=== PATIENT | male | born 1995 | race Caucasian/White ===

== ENCOUNTER 2024-10-02 21:50 | Inpatient (IN) ==
--- NOTE | 2024-10-02 22:12 | ED Physician Documentation ---
History of Present Illness Stated complaint Stated Complaint: YELLOW EYES Chief complaint Chief Complaint: General History obtained from History obtained from: Patient Additonal information Additional information: Previously healthy 29-year-old gentleman was drinking a fair amount and then went on a decker over the weekend for a few days. Woke up the next day was feeling ill also tried drinking some more but it really did not work. He stopped alcohol for 5 days ago and had a few days of nonbloody vomiting and feeling ill. Now he feels great and says "I could run 5 miles right now," but noticed he was jaundiced. He has no history of liver disease. No abdominal pain. Meds/Allgy Allergies Allergies Allergy/AdvReac Type Severity Reaction Status Date / Time No Known Drug Allergies Allergy Verified 10/02/24 21:54 PFSH Active Problems All Active Problems (Updated 10/02/24 @ 23:34 by Cale Hooker MD) Acute alcoholic hepatitis (Acute) Social History Social History (Updated 10/02/24 @ 22:47 by Chet Nevarez RN) Smoking Status: Former smoker Second hand tobacco smoke exposure: Yes Do you dip or chew tobacco?: Yes Do you vape?: No Patient requests smoking cessation consult: No Initiate information on smoking cessation: No Living arrangement: At home Living Condition: Alone Relationship: Do you feel safe in your home environment?: Yes Suffered physical, verbal, emotional, or financial abuse?: No Exam Constitutional normal general appearance and no apparent distress He is jaundiced but in no distress, by eyeball his bilirubin will be in the teens. Gastrointestinal Enlarged nontender liver Results Vitals Vitals: Vital Signs - 24 hr 10/02/24 21:54 10/02/24 22:47 10/02/24 23:11 Temperature 36.8 C 37.1 C Temperature Source Tympanic Oral Pulse Rate 120 H 110 H 101 H Respiratory Rate 16 22 21 Blood Pressure 170/100 H 152/101 H 156/101 H O2 Saturation 100 100 100 O2 Source Room air Room air Room air Pain Intensity 0 Oxygen O2 Source Room air Labs Labs: Laboratory Tests 10/02/24 22:26 WBC 15.7 H RBC 3.26 L Hgb 12.4 L Hct 35.0 L MCV 107.4 H MCH 38.0 H MCHC 35.4 RDW 16.3 H Plt Count 125 L MPV 13.6 H PT 23.9 H INR 2.3 H Sodium 132 L Potassium 3.7 Chloride 96 L Carbon Dioxide 26 Anion Gap 10.0 BUN 8 Creatinine 0.8 Estimated GFR (MDRD) 114 Glucose 121 H Calcium 9.8 Magnesium 1.7 Total Bilirubin 10.8 H AST 122 H ALT 44 Alkaline Phosphatase 84 Total Protein 8.6 Albumin 3.9 Globulin 4.7 H Albumin/Globulin Ratio 0.8 L Lipase 23 Acetaminophen < 0.1 Ethyl Alcohol < 10.0 PD Medical Decision Making ED course ED course: 29-year-old gentleman presents with likely alcoholic hepatitis and jaundice. His MELD score is 28 points giving him almost a 1 in 3 90-day mortality. His Madrey's discriminant factor is 70.1 leading to a poor prognosis and steroids are begun. Care to overnight emergency physician at 11 PM pending u ltrasonography, with recommendation for likely transfer to facility with hepatology. Discharge Plan Discharge Condition: Serious Clinical Impression: Acute alcoholic hepatitis Print Language: Marshallese Stand Alone Forms: PCP List
[2024-10-02] MEDS: THIAMINE 100 MG/1 ML 2 ML MDV IVP STA (22:33)
[2024-10-02] MEDS: SODIUM CHLORIDE 0.9% 1,000 ML IV STA (22:33)
[2024-10-02 22:38] LABS: INR 2.3 (0.8-1.2); PT - PROTHROMBIN TIME 23.9 secs (9.9-12.6)
[2024-10-02 22:39] LABS: BASOPHILS % (AUTO) 0.6 %; EOSINOPHILS % (AUTO) 0.9 %; HGB - HEMOGLOBIN 12.4 g/dL (14.0-18.0); LYMPHOCYTES % (AUTO) 10.2 %; MEAN CORPUSCULAR HGB CONC 35.4 g/dL (32.0-36.0); MEAN CORPUSCULAR VOLUME 107.4 fL (80.0-94.0); MEAN PLATELET VOLUME 13.6 fL (7.4-11.4); MONOCYTES % (AUTO) 10.9 %; NEUTROPHILS % (AUTO) 76.9 %; PLT - PLATELET COUNT 125 10^3/uL (130-450); RED BLOOD COUNT 3.26 10^6/uL (4.70-6.10); RED CELL DISTRIBUTION WIDTH 16.3 % (12.0-15.0); WHITE BLOOD COUNT 15.7 x10^3/uL (4.8-10.8)
[2024-10-02 22:45] LABS: MAGNESIUM 1.7 mg/dL (1.7-2.3)
[2024-10-02 22:52] LABS: ALBUMIN 3.9 g/dL (3.2-5.5); ALBUMIN/GLOBULIN RATIO 0.8 (1.0-2.2); ALKALINE PHOSPHATASE 84 IU/L (42-121); ALT ALANINE AMINOTRANSFERASE 44 IU/L (10-60); AST ASPARTATE AMINOTRANSFERASE 122 IU/L (10-42); BILIRUBIN,TOTAL 10.8 mg/dL (0.2-1.0); BUN - BLOOD UREA NITROGEN 8 mg/dL (6-20); CALCIUM 9.8 mg/dL (8.5-10.3); CARBON DIOXIDE - CO2 26 mmol/L (21-32); CHLORIDE 96 mmol/L (101-111); CREATININE 0.8 mg/dL (0.6-1.3); ETOH - ETHANOL < 10.0 mg/dL; GFR - MDRD 114 (>89); GLUCOSE 121 mg/dL (74-104); LIPASE 23 U/L (11-82); POTASSIUM 3.7 mmol/L (3.5-4.5); SODIUM 132 mmol/L (135-145); TOTAL PROTEIN 8.6 g/dL (6.4-8.9)
[2024-10-02 22:53] LABS: ABNORMAL LYMPHS % (MANUAL) 0 %
[2024-10-02 22:56] LABS: ACETAMINOPHEN < 0.1 ug/mL
[2024-10-02] MEDS: methylPREDNISolone SUCCINATE 40 MG/ML VIAL IVP STA (23:09)
[2024-10-02] MEDS: LORazepam 2 MG/ML VIAL IVP STA (23:29)
[2024-10-02 23:35] LABS: BAND NEUTROPHILS % (MANUAL) 5 %; EOSINOPHILS # (MANUAL) 0.2 10^3/uL (0-0.7); LYMPHOCYTES # (MANUAL) 0.9 10^3/uL (1.5-3.5); LYMPHOCYTES % (MANUAL) 6 %; MONOCYTES # (MANUAL) 0.9 10^3/uL (0.0-1.0); NEUTROPHILS # (MANUAL) 13.7 10^3/uL (1.5-6.6); PLATELET ESTIMATE, MANUAL DECREASED (<130,000) (NORMAL); PLATELET MORPHOLOGY NORMAL APPEARANCE (NORMAL); RBC MORPHOLOGY (MULTIPLE) NORMAL APPEARANCE (NORMAL)
[2024-10-02 23:36] LABS: DIFFERENTIAL COMMENT MANUAL DIFFERENTIAL; WBC MORPHOLOGY (MULTIPLE) NORMAL APPEARANCE (NORMAL)
--- NOTE | 2024-10-03 00:01 | Ultrasound Report ---
PROCEDURE: US Abdomen Limited INDICATIONS: jaundice TECHNIQUE: Real-time focused scanning was performed of the abdomen, with image documentation. COMPARISONS: None. FINDINGS: Liver: Liver is enlarged and measures 23.5 cm in length. Heterogeneously echogenic liver parenchyma is seen. No gross solid-appearing hepatic lesion. Gallbladder: No gallstones, sludge, wall thickening or pericholecystic edema. Biliary ducts: Intrahepatic bile ducts are non-dilated. Extrahepatic bile duct caliber measures 4.3 mm. Normal is 6-7 mm or less in diameter, or 10 mm or less post-cholecystectomy. Pancreas: Visualized portions of the pancreas are sonographically normal. Right kidney: Normal in size and echotexture. Right kidney measures 12.3 cm long. No hydronephrosis or nephrolithiasis. No solid masses. No complex renal cystic lesions which require follow-up. IVC: Intrahepatic inferior vena cava is patent. Miscellaneous: No free abdominal fluid. IMPRESSION: 1. Hepatomegaly and moderate to severe hepatic steatosis. No discrete solid appearing hepatic lesion. 2. Normal-appearing gallbladder. No biliary ductal dilatation. Reviewed by: Bernardo Miramontes MD on 10/03/2024 12:00 AM PST Approved by: Bernardo Miramontes MD on 10/03/2024 12:00 AM PST Station ID: [id number]
[2024-10-03] MEDS: LACTATED RINGERS 1,000 ML IV STA (00:55)
--- NOTE | 2024-10-03 05:47 | ED Physician Documentation ---
ED Addendum Addendum Addendum: The patient was signed out to me at change of shift by . Pending was the ultrasound. Verbal report to me by the factory maintenance technician Misty was enlarged liver but no signs of gallstones nor gallbladder enlargement or thickening and common bile duct was normal. No masses noted. Concern for the patient was whether he needed a special to the consultation and so the handoff impression was potential transfer to a larger facility. We also did not have any beds available currently overnight. I did talk with the hospitalist internal medicine at [facility]. They anticipated possible beds available in the morning after discharges but not necessarily 1 available right now. However they did have me talk with the hospitalist Dr. Courtney Pack. We discussed the case and Dr. Pack stated that they would actually not even consult GI at this point unless the patient's labs started or were worsening. They would go with IV fluids and the steroids and repeat labs and if improving then would do outpatient evaluation. With that discussion, the hospitalist there did not see a need for transfer per se. They did not refuse per se but stated they be happy to hear back from us if we are finding worsening values or symptoms. I updated the patient on this and he was okay with this decision and current disposition of fluids and labs here in the ER and looking for bed availability this following day. I have ordered some continued IV fluids and repeat labs for 6 AM. He is comfortable at this time. Discharge Plan Discharge Condition: Serious Clinical Impression: Acute alcoholic hepatitis Print Language: Beninese Stand Alone Forms: PCP List
[2024-10-03] MEDS ORDERED: methylPREDNISolone SUCCINATE 40 MG/ML VIAL IVP SCH (06:00)
[2024-10-03 06:28] LABS: BASOPHILS % (AUTO) 0.3 %; HCT - HEMATOCRIT 34.7 % (42.0-52.0); LYMPHOCYTES # (AUTO) 0.6 10^3/uL (1.5-3.5); LYMPHOCYTES % (AUTO) 6.2 %; MEAN CORPUSCULAR HEMOGLOBIN 37.7 pg (27.0-31.0); MEAN CORPUSCULAR HGB CONC 34.6 g/dL (32.0-36.0); MEAN CORPUSCULAR VOLUME 109.1 fL (80.0-94.0); MEAN PLATELET VOLUME 12.7 fL (7.4-11.4); MONOCYTES # (AUTO) 0.3 10^3/uL (0.0-1.0); MONOCYTES % (AUTO) 2.9 %; NEUTROPHILS # (AUTO) 9.1 10^3/uL (1.5-6.6); NEUTROPHILS % (AUTO) 90.1 %; PLT - PLATELET COUNT 114 10^3/uL (130-450); RED BLOOD COUNT 3.18 10^6/uL (4.70-6.10); RED CELL DISTRIBUTION WIDTH 16.7 % (12.0-15.0)
[2024-10-03 06:33] LABS: INR 2.5 (0.8-1.2); PT - PROTHROMBIN TIME 25.8 secs (9.9-12.6)
[2024-10-03 06:45] LABS: ALBUMIN 3.8 g/dL (3.2-5.5); ALBUMIN/GLOBULIN RATIO 0.8 (1.0-2.2); BILIRUBIN,TOTAL 9.9 mg/dL (0.2-1.0); CALCIUM 9.5 mg/dL (8.5-10.3); CREATININE 0.6 mg/dL (0.6-1.3); POTASSIUM 4.6 mmol/L (3.5-4.5); TOTAL PROTEIN 8.3 g/dL (6.4-8.9)
--- NOTE | 2024-10-03 10:09 | ED Physician Documentation ---
ED Addendum Addendum Addendum: Patient was signed out to me by Dr. Kim awaiting bed availability. A bed did become available in the hospital, discussed the case with Dr. Ortiz, hospitalist who accepts. Patient will be admitted for further care of his alcoholic hepatitis. Discharge Plan Discharge Patient Disposition: [facility] DC/Xfer Condition: Fair Clinical Impression: Acute alcoholic hepatitis Print Language: Sudanese
[2024-10-03] MEDS: SODIUM CHLORIDE 0.9% 1,000 ML IV STA (11:18)
--- NOTE | 2024-10-03 12:14 | HISTORY & PHYSICAL EXAMINATION ---
Chief Complaint Chief Complaint Chief Complaint: "I started turning yellow" History of Present Illness Admitted From Admitted From:: emergency department History Obtained From Records Reviewed: ER notes 10/02/24, 10/03/24 History obtained from: patient Exam Limitations: None History of Present Illness HPI Comment/Other: Patient is a 29 year old male with history of alcoholism that presents for jaundice. Patient states he drinks 3-5 drinks of hard liquor daily, he had increased alcohol consumption in the past week. Last saturday and saturday he had 10+ drinks each day, then 6-8 drinks on Saturday, and 3-5 on Saturday. He states his last drink was on Saturday. He had nausea and vomiting on Saturday, Saturday, and Saturday and was able to keep food and water down starting on . He notes tremor over the past few days, but denies more severe shaking. Scleral icterus followed by jaundice began on morning. He noted yellowing of his eyes first, and then noted yellowing of his skin. He has never had these symptoms before. He denies headache, fever, chills, abdominal pain, diarrhea, consipation, current nausea or vomiting, vision changes, photophobia, weakness, shortness of breath, chest pain, abnormal sensation including numbness and tingling. He states he tremors when he has not had alcohol and tremor goes away with alcohol consumption. He states he has been drinking heavily for at least the past 6 years, that for the last 3 years it has been 3-5 drinks daily but prior to that he was drinking more daily. Reports history of shaking when in withdrawal. Patient does not have any significant medical history other than his alcohol use, denies smoking history or illegal drug use. He reports family history of alcoholism, cirrhosis, and bladder cancer in his father. The last time he saw a doctor was after leaving the [employer] in 2019. Meds/Allgy Allergies Allergies Allergy/AdvReac Type Severity Reaction Status Date / Time No Known Drug Allergies Allergy Verified 10/02/24 21:54 PFSH Active Problems All Active Problems (Updated 10/03/24 @ 13:21 by Meghna Bill) Alcoholism (Acute) Hyperbilirubinemia (Acute) Acute alcoholic hepatitis (Acute) Social History Social History (Updated 10/02/24 @ 22:47 by Aylwin Roque, RN) Smoking Status: Former smoker Second hand tobacco smoke exposure: Yes Do you dip or chew tobacco?: Yes Do you vape?: No Patient requests smoking cessation consult: No Initiate information on smoking cessation: No Living arrangement: At home Living Condition: Alone Relationship: Do you feel safe in your home environment?: Yes Suffered physical, verbal, emotional, or financial abuse?: No Review of Systems Constitutional Reports: Other (Jaundice); Denies: Fatigue, Fever, Chills, Malaise or Weakness Eyes Reports: Other (scleral icterus); Denies: Blurry vision, Vision loss, Change in vision or Light sensitivity Ears, nose, mouth, and throat Denies: Neck pain or Throat swelling Cardiovascular Denies: chest pain, edema, shortness of breath with exertion or shortness of breath when lying down Respiratory Denies: Shortness of breath Gastrointestinal Denies: Abdominal pain, Abdominal distention, Nausea, Vomiting, Poor appetite, Bile emesis, Uadie blood emesis, Diarrhea or Constipation Genitourinary Denies: Painful urination, Incontinence, Urinary frequency or Urinary urgency Musculoskeletal Denies: Back pain, Neck pain, Extremity pain or Muscle weakness Neurological Reports: Other (positive for tremor); Denies: Headache, General weakness, Numbness in extremities or Abnormal gait Psychiatric Reports: Anxiety; Denies: Depression, Mood swings or Panic attacks Endocrine Denies: Excessive thirst, Polyphagia or Fatigue Hematologic/Lymphatic Denies: Anemia, Easy bruising or Petechiae Allergic/Immunologic Denies: Hives, Throat swelling, Tongue swelling or Facial swelling Exam Constitutional normal general appearance, no apparent distress, average body habitus, no limitations and alert HENMT normocephalic, head/scalp atraumatic and oropharynx normal Eyes PERRL, EOMs intact bilaterally, scleral icterus noted (bilateral scleral icterus noted) and no nystagmus Neck/C-Spine visual inspection normal and trachea midline Chest inspection of chest normal and palpation of chest normal Respiratory breath sounds equal bilaterally, normal respiratory effort, clear to auscultation bilaterally, no wheezes and no rales Cardiovascular heart rate abnormal (tachycardic), regular rhythm noted, no murmur, no JVD and no edema No pedal edema, ascites present. Gastrointestinal abdomen soft to palpation, nontender to palpation, nondistended, normoactive bowel sounds, hepatosplenomegaly noted (hepatomegaly) and no ascites Extremities normal to inspection, normal to palpation, no tenderness and full ROM Neurology rehab therapy manager II-XII intact, no movement abnormality noted, no focal motor deficit noted, no sensory deficits noted, gait normal and speech normal tremor Psychiatry mental status grossly normal, oriented x3, thought process normal and cooperative Skin jaundice noted spider angiomas Conclusion/Plan Problem List (1) Acute alcoholic hepatitis: Plan: * Patient presents with jaundiced after acute on chronic alcohol use 6 days ago. usually drinks 3-5 drinks daily, last drink was 4 days ago. * Scleral icterus and jaundice on exam * Elevated Total Bilirubin 9.9, direct bilirubin 6.61, AST 119. * PT elevated at 25.8 * Patient had elevated white count of 15.7 yesterday, decreased to 10.0 today * On abdominal US Hepatomegaly and moderate to severe hepatic steatosis. No discrete solid appearing hepatic lesion. Gallbladder unremarkable. * Magnesium and potassium WNL * Macrocytic anemia present * Meld score of 26, 19.6% mortality * Maddrey score 73.4 * BP 140/93, borderline tachycardia at 99bpm Plan: prednisolone 40mg PO qd, thiamine supplementation, vitamin. Recheck CBC, CMP, PT/INR daily. Will need hepatology follow up in the outpatient setting. (2) Hyperbilirubinemia: Plan: * Total bilirubin of 9.9, gallbladder normal, hepatomegaly on US * Primarily direct bilirubinemia elevated Recheck daily (3) Alcoholism: Plan: * Patient has been drinking 3-5+ drinks daily for the past 6 years. 6 days ago had 8+ drinks/day x 3 days, weaned himself off, last drink was on Saturday. * Family history of alcoholism and cirrhosis in father * Briefly discussed alcohol cessation with patient. Patient would like to quit drinking Plan: Place patient on CIWA protocol, supplement with thiamine and vitamin. Lab Results Lab results reviewed: Yes 10/03/24 06:21 10/03/24 06:21 Diagnostic Imaging Results Diagnostic Imaging Results: positive Final report reviewed Core Measures Anticipated LOS I expect patient to be DC'd or transferred within 96 hours.: Yes DVT/VTE - Prophylaxis VTE/DVT Device ordered at admit?: Yes
[2024-10-03] MEDS: THIAMINE 100 MG TABLET PO SCH (13:08)
[2024-10-03 13:33] LABS: AMPHETAMINE SCREEN,URINE NEGATIVE (NEGATIVE); BARBITURATE SCREEN,UR NEGATIVE (NEGATIVE); BENZODIAZEPINES SCREEN, URINE POSITIVE (NEGATIVE); BUPRENORPHINE SCREEN, URINE NEGATIVE (NEGATIVE); COCAINE SCREEN URINE NEGATIVE (NEGATIVE); METHADONE SCREEN, URINE NEGATIVE (NEGATIVE); METHAMPHETAMINES SCREEN, URINE NEGATIVE (NEGATIVE); OPIATE SCREEN, URINE NEGATIVE (NEGATIVE); OXYCODONE SCREEN, URINE NEGATIVE (NEGATIVE); THC CANNABINOID SCREEN, URINE NEGATIVE (NEGATIVE); TRICYCLIC ANTIDEPRESSANT,URINE NEGATIVE (NEGATIVE)
[2024-10-03] MEDS ORDERED: SODIUM CHLORIDE FLUSH 0.9% 10 ML SYRINGE IVP PRN (13:46)
[2024-10-03] MEDS ORDERED: ONDANSETRON ODT 4 MG TABLET TL PRN (13:46)
[2024-10-03] MEDS ORDERED: ONDANSETRON 4 MG/2 ML VIAL IVP PRN (13:46)
[2024-10-03] MEDS: SODIUM CHLORIDE FLUSH 0.9% 10 ML SYRINGE IVP SCH (17:47)
[2024-10-04 05:47] LABS: HCT - HEMATOCRIT 33.6 % (42.0-52.0); HGB - HEMOGLOBIN 11.9 g/dL (14.0-18.0); MEAN CORPUSCULAR HEMOGLOBIN 38.5 pg (27.0-31.0); MEAN CORPUSCULAR HGB CONC 35.4 g/dL (32.0-36.0); MEAN CORPUSCULAR VOLUME 108.7 fL (80.0-94.0); MEAN PLATELET VOLUME 12.7 fL (7.4-11.4); RED BLOOD COUNT 3.09 10^6/uL (4.70-6.10); RED CELL DISTRIBUTION WIDTH 17.4 % (12.0-15.0); WHITE BLOOD COUNT 14.3 x10^3/uL (4.8-10.8)
[2024-10-04 05:52] LABS: INR 2.2 (0.8-1.2); PT - PROTHROMBIN TIME 23.3 secs (9.9-12.6)
[2024-10-04 06:05] LABS: BILIRUBIN,DIRECT 5.84 mg/dL (0.03-0.18); BILIRUBIN,INDIRECT 3.4 mg/dL; BILIRUBIN,TOTAL 9.2 mg/dL (0.2-1.0); CREATININE 0.6 mg/dL (0.6-1.3); POTASSIUM 4.1 mmol/L (3.5-4.5)
[2024-10-04 07:36] VITALS: BP 132/91; TEMP 98.4; O2SAT 98
[2024-10-04] MEDS: PRENATAL VITAMIN TABLET PO SCH (08:06)
[2024-10-04] MEDS: PANTOPRAZOLE 40 MG TABLET PO SCH (08:06)
[2024-10-04 08:08] LABS: HBsAG SCREEN Negative (Negative); HCV AB Non Reactive (Non Reactive); HEPATITIS B CORE IGM AB Negative (Negative)
--- NOTE | 2024-10-04 08:57 | PROVIDER PROGRESS NOTE ---
Assessment/Plan <Meghna Bill - Last Filed: 10/04/24 09:05> Problem List (1) Acute alcoholic hepatitis: Assessment/Plan: * Pt INR improved from 25.8 to 23.3/2.5 to 2.2 * direct bilirubin improved from 6.61 to 5.84, total 9.9 to 9.2 * jaundice improved * WBC from 10 to 14.3, potentially secondary to steroid course * Stable megaloblastic anemia, hgb 11.9 Plan: continue prednisolone 40mg, vitamin, thiamine 100mg qd, trend bilirubin and PT/INR, CBC, hepatic function. Will need hepatology follow up in outpatient setting. (2) Hyperbilirubinemia: Assessment/Plan: * Pt INR improved from 25.8 to 23.3/2.5 to 2.2 * direct bilirubin improved from 6.61 to 5.84, total 9.9 to 9.2 * jaundice improved Trend bilirubin and PT/INR (3) Alcoholism: Assessment/Plan: Last drink 6 days ago. Tremors have improved, patient is motivated to quit drinking. Will have social work consult today. Plan: On CIWA protocol, continue vitamin and thiamine 100mg qd. Current Meds Current Meds: Current Medications Generic Name Dose Route Start Last Admin Trade Name Freq PRN Reason Stop Dose Admin Ondansetron HCl 4 mg 10/03/24 13:46 Ondansetron Odt 4 Mg Tablet TL Q6HR PRN Nausea / Vomiting Ondansetron HCl 4 mg 10/03/24 13:46 Ondansetron 4 Mg/2 Ml Vial IVP Q6HR PRN Nausea / Vomiting Pantoprazole Sodium 40 mg 10/04/24 09:00 10/04/24 08:06 Pantoprazole 40 Mg Tablet PO 40 mg DAILY SHARI Administration Multivit/Folic Acid/Iron 1 tab 10/04/24 08:00 10/04/24 08:06 Vitamin Tablet PO 1 tab DAILYWM SHARI Administration Sodium Chloride 10 ml 10/03/24 13:46 Sodium Chloride Flush 0.9% 10 Ml Syringe IVP PRN PRN NEEDED PER PROVIDER ORDERS Sodium Chloride 10 ml 10/03/24 17:00 10/04/24 08:06 Sodium Chloride Flush 0.9% 10 Ml Syringe IVP 10 ml 0100,0900,1700 SHARI Administration Thiamine HCl 100 mg 10/03/24 13:00 10/03/24 13:08 Thiamine 100 Mg Tablet PO 100 mg Q24H SHARI Administration Lab Result Lab results reviewed: Yes 10/04/24 05:21 10/04/24 05:21 Additional Planning Condition/Complexity: Improved <Cally Montero MD - Last Filed: 10/04/24 15:00> Problem List (1) Acute alcoholic hepatitis: (2) Hyperbilirubinemia: (3) Alcoholism: Current Meds Current Meds: Current Medications Generic Name Dose Route Start Last Admin Trade Name Freq PRN Reason Stop Dose Admin Ondansetron HCl 4 mg 10/03/24 13:46 Ondansetron Odt 4 Mg Tablet TL Q6HR PRN Nausea / Vomiting Ondansetron HCl 4 mg 10/03/24 13:46 Ondansetron 4 Mg/2 Ml Vial IVP Q6HR PRN Nausea / Vomiting Pantoprazole Sodium 40 mg 10/04/24 09:00 10/04/24 08:06 Pantoprazole 40 Mg Tablet PO 40 mg DAILY SHARI Administration Multivit/Folic Acid/Iron 1 tab 10/04/24 08:00 10/04/24 08:06 Vitamin Tablet PO 1 tab DAILYWM SHARI Administration Sodium Chloride 10 ml 10/03/24 13:46 Sodium Chloride Flush 0.9% 10 Ml Syringe IVP PRN PRN NEEDED PER PROVIDER ORDERS Sodium Chloride 10 ml 10/03/24 17:00 10/04/24 08:06 Sodium Chloride Flush 0.9% 10 Ml Syringe IVP 10 ml 0100,0900,1700 SHARI Administration Thiamine HCl 100 mg 10/03/24 13:00 10/03/24 13:08 Thiamine 100 Mg Tablet PO 100 mg Q24H SHARI Administration Subjective <Meghna Bill - Last Filed: 10/04/24 09:05> Subjective Patient Reports: Feeling Better and Resting Comfortably Nursing Reports: Other (Patient overall is feeling better, less anxious, notes decreased tremors. He would like to discuss hospital costs with social work. ) Objective <Meghna Bill - Last Filed: 10/04/24 09:05> Vital Signs: Vital Signs - 24 hr 10/03/24 08:00 10/03/24 10:00 10/03/24 12:00 Temperature Temperature Source Pulse Rate 72 75 100 Pulse Rate [Brachial] Respiratory Rate 16 16 18 Blood Pressure 119/75 125/80 140/93 H Blood Pressure [Left Brachial artery] O2 Saturation 96 94 94 O2 Source Room air Room air Room air Sedation scale Pain Intensity 0 0 10/03/24 14:18 10/03/24 16:46 10/03/24 23:43 Temperature 36.7 C 36.7 C 37.0 C Temperature Source Skin Skin Skin Pulse Rate Pulse Rate [Brachial] 95 87 85 Respiratory Rate 24 18 18 Blood Pressure Blood Pressure [Left Brachial artery] 133/89 H 128/93 H 130/93 H O2 Saturation 97 96 96 O2 Source Room air Room air Room air Sedation scale 0-Fully awake 0-Fully awake 0-Fully awake Pain Intensity 0 10/04/24 07:35 Temperature 36.9 C Temperature Source Temporal Artery Scan Pulse Rate Pulse Rate [Brachial] 83 Respiratory Rate 14 Blood Pressure Blood Pressure [Left Brachial artery] 132/91 H O2 Saturation 98 O2 Source Room air Sedation scale Pain Intensity 0 Oxygen O2 Source Room air I&O (Last 24 Hrs): Intake and Output Totals x24h 10/02/24 10/03/24 10/05/24 23:59 23:59 00:59 Intake Total 1000 / 1000 3020 / 3020 275 / 275 Balance 1000 / 1000 3020 / 3020 275 / 275 General: Alert, Oriented x3 and No acute distress HEENT: Atraumatic, PERRLA and EOMI Neck: Supple Lymphatic: no adenopathy Neuro: Alert, CN 2-12 Grossly Intact and Oriented Times 3 Cardiovascular: Regular rate, No murmurs and Other (Regular rhythm, no murmurs rubs or gallops) Respiratory: Chest non-tender and Other (Lungs CTA, no rhonchi wheezes or rales) Abdomen: Normal bowel sounds, Soft, No tenderness and Other (hepatomegaly) Extremities: No edema Comments/Notes: Jaundice and scleral icterus Results Results: Laboratory Results WBC 14.3 x10^3/uL (4.8-10.8) H 10/04/24 05:21 RBC 3.09 10^6/uL (4.70-6.10) L 10/04/24 05:21 Hgb 11.9 g/dL (14.0-18.0) L 10/04/24 05:21 Hct 33.6 % (42.0-52.0) L 10/04/24 05:21 MCV 108.7 fL (80.0-94.0) H 10/04/24 05:21 MCH 38.5 pg (27.0-31.0) H 10/04/24 05:21 MCHC 35.4 g/dL (32.0-36.0) 10/04/24 05:21 RDW 17.4 % (12.0-15.0) H 10/04/24 05:21 Plt Count 156 10^3/uL (130-450) 10/04/24 05:21 MPV 12.7 fL (7.4-11.4) H 10/04/24 05:21 Neut # (Auto) 9.1 10^3/uL (1.5-6.6) H 10/03/24 06:21 Lymph # (Auto) 0.6 10^3/uL (1.5-3.5) L 10/03/24 06:21 [place] # (Auto) 0.3 10^3/uL (0.0-1.0) 10/03/24 06:21 Eos # (Auto) 0.0 10^3/uL (0.0-0.7) 10/03/24 06:21 Baso # (Auto) 0.0 10^3/uL (0.0-0.1) 10/03/24 06:21 Absolute Nucleated RBC 0.00 x10^3/uL 10/03/24 06:21 Total Counted 100 10/02/24 22:26 Band Neuts % (Manual) 5 % (0-10) 10/02/24 22:26 Abnorm Lymph % (Manual) 0 % 10/02/24 22:26 Nucleated RBC % 0.0 /100WBC 10/03/24 06:21 Neutrophils # (Manual) 13.7 10^3/uL (1.5-6.6) H 10/02/24 22:26 Lymphocytes # (Manual) 0.9 10^3/uL (1.5-3.5) L 10/02/24 22:26 Monocytes # (Manual) 0.9 10^3/uL (0.0-1.0) 10/02/24 22:26 Eosinophils # (Manual) 0.2 10^3/uL (0-0.7) 10/02/24 22:26 Basophils # (Manual) 0.0 10^3/uL (0-0.1) 10/02/24 22:26 Differential Comment MANUAL DIFFERENTIAL 10/02/24 22:26 WBC Morphology NORMAL APPEARANCE (NORMAL) 10/02/24 22:26 Platelet Estimate DECREASED (<130,000) (NORMAL) 10/02/24 22:26 Platelet Morphology NORMAL APPEARANCE (NORMAL) 10/02/24 22: RBC Morph Micro Appear NORMAL APPEARANCE (NORMAL) 10/02/24 22:26 PT 23.3 secs (9.9-12.6) H 10/04/24 05:21 INR 2.2 (0.8-1.2) H 10/04/24 05:21 Sodium 136 mmol/L (135-145) 10/04/24 05:21 Potassium 4.1 mmol/L (3.5-4.5) 10/04/24 05:21 Chloride 103 mmol/L (101-111) 10/04/24 05:21 Carbon Dioxide 25 mmol/L (21-32) 10/04/24 05:21 Anion Gap 8.0 (6-13) 10/04/24 05:21 BUN 11 mg/dL (6-20) 10/04/24 05:21 Creatinine 0.6 mg/dL (0.6-1.3) 10/04/24 05:21 Estimated GFR (MDRD) 159 (>89) 10/04/24 05:21 Glucose 110 mg/dL (74-104) H 10/04/24 05:21 Calcium 9.0 mg/dL (8.5-10.3) 10/04/24 05:21 Magnesium 2.0 mg/dL (1.7-2.3) 10/04/24 05:21 Total Bilirubin 9.2 mg/dL (0.2-1.0) H 10/04/24 05:21 Direct Bilirubin 5.84 mg/dL (0.03-0.18) H 10/04/24 05:21 Indirect Bilirubin 3.4 mg/dL 10/04/24 05:21 AST 119 IU/L (10-42) H 10/03/24 06:21 ALT 45 IU/L (10-60) 10/03/24 06:21 Alkaline Phosphatase 78 IU/L (42-121) 10/03/24 06:21 Total Protein 8.3 g/dL (6.4-8.9) 10/03/24 06:21 Albumin 3.8 g/dL (3.2-5.5) 10/03/24 06:21 Globulin 4.5 g/dL (2.1-4.2) H 10/03/24 06:21 Albumin/Globulin Ratio 0.8 (1.0-2.2) L 10/03/24 06:21 Lipase 19 U/L (11-82) 10/03/24 06:21 Urine Opiates Screen NEGATIVE (NEGATIVE) 10/03/24 12:58 Ur Buprenorphine Scrn NEGATIVE (NEGATIVE) 10/03/24 12:58 Ur Oxycodone Screen NEGATIVE (NEGATIVE) 10/03/24 12:58 Urine Methadone Screen NEGATIVE (NEGATIVE) 10/03/24 12:58 Acetaminophen < 0.1 ug/mL 10/02/24 22:26 Ur Barbiturates Screen NEGATIVE (NEGATIVE) 10/03/24 12:58 Ur Tricyclics Screen NEGATIVE (NEGATIVE) 10/03/24 12:58 Ur Phencyclidine Scrn NEGATIVE (NEGATIVE) 10/03/24 12:58 Ur Amphetamine Screen NEGATIVE (NEGATIVE) 10/03/24 12:58 U Methamphetamines Scrn NEGATIVE (NEGATIVE) 10/03/24 12:58 U Benzodiazepines Scrn POSITIVE (NEGATIVE) H 10/03/24 12:58 Urine Cocaine Screen NEGATIVE (NEGATIVE) 10/03/24 12:58 U Cannabinoids Screen NEGATIVE (NEGATIVE) 10/03/24 12:58 Ur Drug Screen Comment CUTOFF CONC BELOW: 10/03/24 12:58 Ethyl Alcohol < 10.0 mg/dL 10/02/24 22:26 Hepatitis A IgM Ab Negative (Negative) 10/03/24 06:21 Hep Bs Antigen Negative (Negative) 10/03/24 06:21 Hep B Core IgM Ab Negative (Negative) 10/03/24 06:21 Hepatitis C Antibody Non Reactive (Non Reactive) 10/03/24 06:21 Hepatitis C Interp Comment (.) 10/03/24 06:21 <Cally L MD Winston - Last Filed: 10/04/24 15:00> Vital Signs: Vital Signs - 24 hr 10/03/24 08:00 10/03/24 10:00 10/03/24 12:00 Temperature Temperature Source Pulse Rate 72 75 100 Pulse Rate [Brachial] Respiratory Rate 16 16 18 Blood Pressure 119/75 125/80 140/93 H Blood Pressure [Left Brachial artery] O2 Saturation 96 94 94 O2 Source Room air Room air Room air Sedation scale Pain Intensity 0 0 10/03/24 14:18 10/03/24 16:46 10/03/24 23:43 Temperature 36.7 C 36.7 C 37.0 C Temperature Source Skin Skin Skin Pulse Rate Pulse Rate [Brachial] 95 87 85 Respiratory Rate 24 18 18 Blood Pressure Blood Pressure [Left Brachial artery] 133/89 H 128/93 H 130/93 H O2 Saturation 97 96 96 O2 Source Room air Room air Room air Sedation scale 0-Fully awake 0-Fully awake 0-Fully awake Pain Intensity 0 10/04/24 07:35 Temperature 36.9 C Temperature Source Temporal Artery Scan Pulse Rate Pulse Rate [Brachial] 83 Respiratory Rate 14 Blood Pressure Blood Pressure [Left Brachial artery] 132/91 H O2 Saturation 98 O2 Source Room air Sedation scale Pain Intensity 0 Oxygen O2 Source Room air I&O (Last 24 Hrs): Intake and Output Totals x24h 10/02/24 10/03/24 10/05/24 23:59 23:59 00:59 Intake Total 1000 / 1000 3020 / 3020 275 / 275 Balance 1000 / 1000 3020 / 3020 275 / 275 Results Results: Laboratory Results WBC 14.3 x10^3/uL (4.8-10.8) H 10/04/24 05:21 RBC 3.09 10^6/uL (4.70-6.10) L 10/04/24 05:21 Hgb 11.9 g/dL (14.0-18.0) L 10/04/24 05:21 Hct 33.6 % (42.0-52.0) L 10/04/24 05:21 MCV 108.7 fL (80.0-94.0) H 10/04/24 05:21 MCH 38.5 pg (27.0-31.0) H 10/04/24 05:21 MCHC 35.4 g/dL (32.0-36.0) 10/04/24 05:21 RDW 17.4 % (12.0-15.0) H 10/04/24 05:21 Plt Count 156 10^3/uL (130-450) 10/04/24 05:21 MPV 12.7 fL (7.4-11.4) H 10/04/24 05:21 Neut # (Auto) 9.1 10^3/uL (1.5-6.6) H 10/03/24 06:21 Lymph # (Auto) 0.6 10^3/uL (1.5-3.5) L 10/03/24 06:21 [place] # (Auto) 0.3 10^3/uL (0.0-1.0) 10/03/24 06:21 Eos # (Auto) 0.0 10^3/uL (0.0-0.7) 10/03/24 06:21 Baso # (Auto) 0.0 10^3/uL (0.0-0.1) 10/03/24 06:21 Absolute Nucleated RBC 0.00 x10^3/uL 10/03/24 06:21 Total Counted 100 10/02/24 22:26 Band Neuts % (Manual) 5 % (0-10) 10/02/24 22:26 Abnorm Lymph % (Manual) 0 % 10/02/24 22:26 Nucleated RBC % 0.0 /100WBC 10/03/24 06:21 Neutrophils # (Manual) 13.7 10^3/uL (1.5-6.6) H 10/02/24 22:26 Lymphocytes # (Manual) 0.9 10^3/uL (1.5-3.5) L 10/02/24 22:26 Monocytes # (Manual) 0.9 10^3/uL (0.0-1.0) 10/02/24 22: Eosinophils # (Manual) 0.2 10^3/uL (0-0.7) 10/02/24 22:26 Basophils # (Manual) 0.0 10^3/uL (0-0.1) 10/02/24 22:26 Differential Comment MANUAL DIFFERENTIAL 10/02/24 22: WBC Morphology NORMAL APPEARANCE (NORMAL) 10/02/24 22: Platelet Estimate DECREASED (<130,000) (NORMAL) 10/02/24 22: Platelet Morphology NORMAL APPEARANCE (NORMAL) 10/02/24 22:26 RBC Morph Micro Appear NORMAL APPEARANCE (NORMAL) 10/02/24 22:26 PT 23.3 secs (9.9-12.6) H 10/04/24 05:21 INR 2.2 (0.8-1.2) H 10/04/24 05:21 Sodium 136 mmol/L (135-145) 10/04/24 05:21 Potassium 4.1 mmol/L (3.5-4.5) 10/04/24 05:21 Chloride 103 mmol/L (101-111) 10/04/24 05:21 Carbon Dioxide 25 mmol/L (21-32) 10/04/24 05:21 Anion Gap 8.0 (6-13) 10/04/24 05:21 BUN 11 mg/dL (6-20) 10/04/24 05:21 Creatinine 0.6 mg/dL (0.6-1.3) 10/04/24 05:21 Estimated GFR (MDRD) 159 (>89) 10/04/24 05:21 Glucose 110 mg/dL (74-104) H 10/04/24 05:21 Calcium 9.0 mg/dL (8.5-10.3) 10/04/24 05:21 Magnesium 2.0 mg/dL (1.7-2.3) 10/04/24 05:21 Total Bilirubin 9.2 mg/dL (0.2-1.0) H 10/04/24 05:21 Direct Bilirubin 5.84 mg/dL (0.03-0.18) H 10/04/24 05:21 Indirect Bilirubin 3.4 mg/dL 10/04/24 05:21 AST 119 IU/L (10-42) H 10/03/24 06:21 ALT 45 IU/L (10-60) 10/03/24 06:21 Alkaline Phosphatase 78 IU/L (42-121) 10/03/24 06:21 Total Protein 8.3 g/dL (6.4-8.9) 10/03/24 06:21 Albumin 3.8 g/dL (3.2-5.5) 10/03/24 06:21 Globulin 4.5 g/dL (2.1-4.2) H 10/03/24 06:21 Albumin/Globulin Ratio 0.8 (1.0-2.2) L 10/03/24 06:21 Lipase 19 U/L (11-82) 10/03/24 06:21 Urine Opiates Screen NEGATIVE (NEGATIVE) 10/03/24 12:58 Ur Buprenorphine Scrn NEGATIVE (NEGATIVE) 10/03/24 12:58 Ur Oxycodone Screen NEGATIVE (NEGATIVE) 10/03/24 12:58 Urine Methadone Screen NEGATIVE (NEGATIVE) 10/03/24 12:58 Acetaminophen < 0.1 ug/mL 10/02/24 22:26 Ur Barbiturates Screen NEGATIVE (NEGATIVE) 10/03/24 12:58 Ur Tricyclics Screen NEGATIVE (NEGATIVE) 10/03/24 12:58 Ur Phencyclidine Scrn NEGATIVE (NEGATIVE) 10/03/24 12:58 Ur Amphetamine Screen NEGATIVE (NEGATIVE) 10/03/24 12:58 U Methamphetamines Scrn NEGATIVE (NEGATIVE) 10/03/24 12:58 U Benzodiazepines Scrn POSITIVE (NEGATIVE) H 10/03/24 12:58 Urine Cocaine Screen NEGATIVE (NEGATIVE) 10/03/24 12:58 U Cannabinoids Screen NEGATIVE (NEGATIVE) 10/03/24 12:58 Ur Drug Screen Comment CUTOFF CONC BELOW: 10/03/24 12:58 Ethyl Alcohol < 10.0 mg/dL 10/02/24 22:26 Hepatitis A IgM Ab Negative (Negative) 10/03/24 06:21 Hep Bs Antigen Negative (Negative) 10/03/24 06:21 Hep B Core IgM Ab Negative (Negative) 10/03/24 06:21 Hepatitis C Antibody Non Reactive (Non Reactive) 10/03/24 06:21 Hepatitis C Interp Comment (.) 10/03/24 06:21 Current Medications <Meghna Bill - Last Filed: 10/04/24 09:05> Current Medications Current Medications: Current Medications Generic Name Dose Route Start Last Admin Trade Name Freq PRN Reason Stop Dose Admin Ondansetron HCl 4 mg 10/03/24 13:46 Ondansetron Odt 4 Mg Tablet TL Q6HR PRN Nausea / Vomiting Ondansetron HCl 4 mg 10/03/24 13:46 Ondansetron 4 Mg/2 Ml Vial IVP Q6HR PRN Nausea / Vomiting Pantoprazole Sodium 40 mg 10/04/24 09:00 10/04/24 08:06 Pantoprazole 40 Mg Tablet PO 40 mg DAILY SHARI Administration Multivit/Folic Acid/Iron 1 tab 10/04/24 08:00 10/04/24 08:06 Vitamin Tablet PO 1 tab DAILYWM SHARI Administration Sodium Chloride 10 ml 10/03/24 13:46 Sodium Chloride Flush 0.9% 10 Ml Syringe IVP PRN PRN NEEDED PER PROVIDER ORDERS Sodium Chloride 10 ml 10/03/24 17:00 10/04/24 08:06 Sodium Chloride Flush 0.9% 10 Ml Syringe IVP 10 ml 0100,0900,1700 SHARI Administration Thiamine HCl 100 mg 10/03/24 13:00 10/03/24 13:08 Thiamine 100 Mg Tablet PO 100 mg Q24H SHARI Administration <Cally Montero MD - Last Filed: 10/04/24 15:00> Current Medications Current Medications: Current Medications Generic Name Dose Route Start Last Admin Trade Name Freq PRN Reason Stop Dose Admin Ondansetron HCl 4 mg 10/03/24 13:46 Ondansetron Odt 4 Mg Tablet TL Q6HR PRN Nausea / Vomiting Ondansetron HCl 4 mg 10/03/24 13:46 Ondansetron 4 Mg/2 Ml Vial IVP Q6HR PRN Nausea / Vomiting Pantoprazole Sodium 40 mg 10/04/24 09:00 10/04/24 08:06 Pantoprazole 40 Mg Tablet PO 40 mg DAILY SHARI Administration Multivit/Folic Acid/Iron 1 tab 10/04/24 08:00 10/04/24 08:06 Vitamin Tablet PO 1 tab DAILYWM SHARI Administration Sodium Chloride 10 ml 10/03/24 13:46 Sodium Chloride Flush 0.9% 10 Ml Syringe IVP PRN PRN NEEDED PER PROVIDER ORDERS Sodium Chloride 10 ml 10/03/24 17:00 10/04/24 08:06 Sodium Chloride Flush 0.9% 10 Ml Syringe IVP 10 ml 0100,0900,1700 SHARI Administration Thiamine HCl 100 mg 10/03/24 13:00 10/03/24 13:08 Thiamine 100 Mg Tablet PO 100 mg Q24H SHARI Administration
--- NOTE | 2024-10-04 11:35 | PHARMACY PROGRESS NOTE ---
Best Possible Medication History Admit Date and Time: 10/03/24 [id number] [facility] Statement: Pt interview and [employer] rx records review. Pt reports taking no home medications currently. As the person ultimately responsible for medication therapy, providers are able to order a medication from an existing home medication list in [facility] via the "Reconcile Routine" prior to Confirmation of that medication by it desktop support specialist. Such practice is discouraged except when the physician, in their clinical judgment, deems that a medical need exists for a medication without regard to previous use.
--- NOTE | 2024-10-04 14:57 | Discharge Summary ---
"Discharge Summary Admit Date: 10/03/24 Discharge Date: 10/04/24 Discharging Provider: Dr. Cally Montero MD Primary Care Provider: None Code Status: Attempt Resuscitation DIAGNOSES Discharge Diagnoses with Status of Each Condition: Acute Alcoholic Hepatitis - improving alcoholism - chronic, patient motivated to quit hyperbilirubinemia - improving HPI History of Present Illness: Patient is a 29 year old male with history of alcoholism that presents for jaundice. Patient states he drinks 3-5 drinks of hard liquor daily, he had increased alcohol consumption in the past week. Last saturday and saturday he had 10+ drinks each day, then 6-8 drinks on Saturday, and 3-5 on Saturday. He states his last drink was on Saturday. He had nausea and vomiting on Saturday, Saturday, and Saturday and was able to keep food and water down starting on . He notes tremor over the past few days, but denies more severe shaking. Scleral icterus followed by jaundice began on morning. He noted yellowing of his eyes first, and then noted yellowing of his skin. He has never had these symptoms before. He denies headache, fever, chills, abdominal pain, diarrhea, consipation, current nausea or vomiting, vision changes, photophobia, weakness, shortness of breath, chest pain, abnormal sensation including numbness and tingling. He states he tremors when he has not had alcohol and tremor goes away with alcohol consumption. He states he has been drinking heavily for at least the past 6 years, that for the last 3 years it has been 3-5 drinks daily but prior to that he was drinking more daily. Reports history of shaking when in withdrawal. Patient does not have any significant medical history other than his alcohol use, denies smoking history or illegal drug use. He reports family history of alcoholism, cirrhosis, and bladder cancer in his father. The last time he saw a doctor was after leaving the [employer] in 2019. CONSULTS | PROCEDURES Procedures: US abdomen limited showed Hepatomegaly and moderate to severe hepatic steatosis. No discrete solid appearing hepatic lesion.Normal-appearing gallbladder. No biliary ductal dilatation. HOSPITAL COURSE Hospital Course: * Patient is a 29 year old male with history of alcoholism admitted for acute alcoholic hepatitis. Also has associated hyperbilirubinemia. * MELD score on admission 19.6% mortality, Maddrey score 73.4 * Last drink was on 09/28/24. Denies withdrawal symptoms other than tremor. * Symptoms included jaundice and scleral icterus, but no GI or neurological symptoms other than tremor. * Patient was placed on prednisolone 40mg, thiamine 100mg, and vitamine * PT/INR trending downward, most recent labs improved from 25.8 to 23.3/2.5 to 2.2 * bilirubin trending downward, most recent labs direct bilirubin improved from 6.61 to 5.84, total 9.9 to 9.2 * WBC elevated at 14.3, potentially secondary to steroid course * Patient given alcohol cessation resources by social work and hospitalist. He is motivated to quit drinking and mentioned trying AA. * Patient given outpatient 28 day course of prednisolone 20 mg BID. He completed two days of course while inpatient. * Patient also to continue vitamin and thiamine supplements * He will need recheck of CBC, CMP, and PT/INR either by PCP or walk in clinic. He was instructed to establish with a PCP, but if he cannot get an appointment to go to walk in clinic for lab recheck and recalculation of Maddrey score to determine whether he needs to continue steroid course. * Patient should follow up with a pickle solution maker to evaluate for chronic liver disease ALLERGIES Allergies Allergy/AdvReac Type Severity Reaction Status Date / Time No Known Drug Allergies Allergy Verified 10/02/24 21:54 MEDICATIONS Ambulatory Orders Medication Instructions Recorded Confirmed prednisone 20 mg tablet 20 mg PO BID #56 tabs 10/04/24 vit,calcium 27-ferrous 1 tab PO DAILYWM #30 tabs 10/04/24 fum 60 mg iron-folic acid 1 mg tablet (Trinatal Rx 1) thiamine mononitrate (vit B1) 100 100 mg PO Q24H #30 tabs 10/04/24 mg tablet PHYSICAL EXAM AT DISCHARGE General Appearance: positive No acute distress and Alert Eyes Bilateral: positive Normal inspection, PERRL and EOMI; negative No scleral icterus Neck: positive Nml inspection and Trachea midline Respiratory: positive Chest non-tender, No respiratory distress and Breath sounds nml; negative Wheezes, Rales or Rhonchi Cardiovascular: positive Regular rate & rhythm, No murmur and No gallop Abdomen: positive Non-tender and No distention Skin: negative Color nml (Jaundice) Extremities: positive Full ROM, Nml appearance and No pedal edema Neurologic/Psychiatric: positive Oriented x3, CN's nml (2-12) and Mood/affect nml LABS 10/04/24 05:21 10/04/24 05:21 Discharge Plan Discharge Patient Disposition: 01 Home, Self Care Condition: Fair Medically Cleared Date:: 10/04/24 Prescriptions: New Trin[place] Rx 1 60 mg iron-1 mg Tablet 1 tab PO DAILYWM Qty: 30 0RF thiamine mononitrate (vit B1) 100 mg Tablet 100 mg PO Q24H Qty: 30 0RF prednisone 20 mg tablet 20 mg PO BID Qty: 56 0RF Activity Restrictions: no alcohol intake at all Diet: Regular Health Concerns: You are a 29-year-old white male who 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 Unfortunately you have also developed alcoholism. Your most recent bout of alcohol abuse has resulted in nausea, vomiting and you turning yellow. You came to the emergency room and we found you to have alcoholic hepatitis. Your liver damage was severe enough that we analyzed your lab values to assess your risk 9. We found you to have a MELD score of 26 which was associated with a 19.6 chance of mortality in the next 90 days. And a Madrey score of 73.4 which resulted in our using steroids to help the inflammation in your liver. We also started you on B12 vitamin in the form of vitamin, and thiamine supplementation which helps her bone marrow heal in the face of alcohol abuse. One of the ways we know that your liver is not working well is a lab value called INR. It is a measurement of proteins that help you clot when you cut yourself. A normal value is 1.0. Anything above 1.5 is considered alarming in liver health. You were 2.5. Today you were 2.4. After couple of days of steroids, you have done well. You has not had any nausea or vomiting or abdominal pain. You are ambulating in the room without any assistance. You are eating normally. I think you are safe to go home. I can only educate you about your risk. You must follow through to save your life. You must never drink alcohol again. Ever. For the rest of your life. Not even nonalcoholic beer. Social work has explained to you that there are organizations that can help you stop drinking. AA is one of them. But you are a and have the opportunity to avail yourself of many programs within the [place] healthcare system. I would strongly encourage you and urged you to use 1 of those entities. Please see a primary care provider in the next week. I need you to have a CBC, CMP, and INR rechecked. These lab work will then determine how much longer you are going to take steroids. Discharge medications will be the vitamin for B12, thiamine 100 mg a day, and prednisone 20 mg by mouth twice a day. The steroids can last up to 28 days. But if you are doing well and your labs are normal, you can stop the steroids. But you have to do that with a primary care provider's advice. Print Language: Kyrgyz Patient Instructions: Cirrhosis, Addiction Alcohol, Addiction Get Help Stand Alone Forms: PCP List"
== END 2024-10-04 15:00 | disposition home or self-care (01) | DRG 434 ==
LOC: ED 21:50 → MS3 10-03 13:18
PROVIDERS: ADMIT Internal Medicine; ATTEND Internal Medicine
DX: E80.6 Other disorders of bilirubin metabolism; Z87.891 Personal history of nicotine dependence; T38.0X5A Adverse effect of glucocorticoids and synthetic analogues, initial encounter; D72.829 Elevated white blood cell count, unspecified; F10.20 Alcohol dependence, uncomplicated; K70.10 Alcoholic hepatitis without ascites; Z81.1 Family history of alcohol abuse and dependence; Z79.52 Long term (current) use of systemic steroids